=== PATIENT | female | born 2000 | race Caucasian/White ===

== ENCOUNTER → 2020-04-06 | Outpatient (CLI) | payer OTHER ==
[~2020-04-06] MED LIST: CLIN60LO2 TP; ETHI1TAB7 PO; MULT-658 PO
== END | disposition home or self-care (01) ==
LOC: STAR 15:44
PROVIDERS: ATTEND Otolaryngology
DX: Z20.822 Contact with and (suspected) exposure to COVID-19 (principal); R22.1 Localized swelling, mass and lump, neck
CPT/HCPCS: 87635

== ENCOUNTER 2020-04-12 12:16 | Observation (INO) | payer OTHER ==
[~2020-04-12] VITALS: Ht 162.6 cm; Wt 69.2 kg
[2020-04-12] MEDS ORDERED: EPINEPHRINE 1 MG/ML, 1ML ONE (12:30)
[2020-04-12] MEDS ORDERED: LIDOCAINE/PF 1%, 30ML ONE (12:30)
[2020-04-12 12:43] LABS: HCG UR SG 1.022 (1.003-1.030)
[2020-04-12] MEDS ORDERED: CHLORHEXIDINE 15 ML UDC MM ONE (13:00)
[2020-04-12] MEDS ORDERED: LACTATED RINGERS 1,000 ML IV SCH (13:00)
[2020-04-12] MEDS ORDERED: PROPOFOL 50 ML ONE (13:54)
[2020-04-12] MEDS ORDERED: MIDAZOLAM 1 MG/ML, 2ML ONE (13:55)
[2020-04-12] MEDS ORDERED: FENTANYL PF 250 MCG/5ML ONE (13:55)
[2020-04-12] MEDS ORDERED: LIDOCAINE 1%-EPI 1:100K, 30ML INFIL ONE (14:15)
[2020-04-12] MEDS ORDERED: CEFAZOLIN 1,000 MG ONE (14:15)
[2020-04-12] MEDS ORDERED: SUCCINYLCHOLINE 20 MG/ML, 10ML ONE (15:48)
[2020-04-12] MEDS ORDERED: ROCURONIUM 10MG/ML,5ML ONE (15:48)
[2020-04-12] MEDS ORDERED: DEXAMETHASONE 4 MG/ML, 5ML ONE (15:49)
[2020-04-12] MEDS ORDERED: DIPHENHYDRAMINE 50 MG/ML, 1ML ONE (15:49)
[2020-04-12] MEDS ORDERED: ONDANSETRON 2MG/ML, 2ML ONE (15:49)
[2020-04-12] MEDS ORDERED: FENTANYL PF 100 MCG/2ML ONE ×2 (15:49→16:51)
[2020-04-12] MEDS ORDERED: ONDANSETRON 2MG/ML, 2ML IVPush PRN (16:30)
[2020-04-12] MEDS ORDERED: HYDROmorphone 1 MG/ML, 1ML INJ IVPush PRN (16:30)
[2020-04-12] MEDS ORDERED: EPHEDRINE 50 MG/ML, 1ML IVPush PRN (16:30)
[2020-04-12] MEDS ORDERED: EPHEDRINE 50 MG/ML, 1ML IM PRN (16:30)
[2020-04-12] MEDS ORDERED: MEPERIDINE/PF 25MG/0.5ML IVPush PRN (16:30)
[2020-04-12] MEDS ORDERED: OXYcodone 5 MG/5 ML ORAL.SOL UDC PO PRN (16:30)
[2020-04-12] MEDS ORDERED: DIPHENHYDRAMINE 50 MG/ML, 1ML IVPush PRN (16:30)
[2020-04-12] MEDS ORDERED: DIAZEPAM 5 MG/ML, 2ML IVPush PRN (16:30)
[2020-04-12] MEDS ORDERED: LABETALOL 5MG/ML, 20ML IV PRN (16:30)
[2020-04-12] MEDS ORDERED: PROMETHAZINE 25 MG/ML, 1ML IVPush PRN (16:30)
[2020-04-12] MEDS ORDERED: OXYcodone 5 MG/5 ML ORAL.SOL UDC ONE (16:52)
[2020-04-12] MEDS: FENTANYL PF 100 MCG/2ML IV PRN ×2 (16:53→17:08)
[2020-04-12] MEDS ORDERED: ONDANSETRON 2MG/ML, 2ML IV PRN (18:30)
[2020-04-12] MEDS ORDERED: ACETAMINOPHEN 325 MG TABLET PO PRN (18:30)
[2020-04-12] MEDS ORDERED: OXYcodone/APAP 5/325MG TABLET PO PRN (18:30)
[2020-04-12] MEDS: KETOROLAC 30 MG/1 ML IV PRN (20:08)
[2020-04-12] MEDS: LACTATED RINGERS 1,000 ML IV SCH (20:09)
[2020-04-12 23:14] VITALS: BP 96/54
[2020-04-13] MEDS: KETOROLAC 30 MG/1 ML IV PRN ×2 (03:23→12:57)
[2020-04-13 03:29] VITALS: BP 121/75
[2020-04-13 07:45] VITALS: BP 121/79
[2020-04-13] MEDS: LACTATED RINGERS 1,000 ML IV SCH (08:20)
[2020-04-13 12:30] VITALS: BP 108/70
== END 2020-04-13 16:18 | disposition home or self-care (01) ==
LOC: OUT 12:16 → EDSTATUS 15:30 → 4NE 18:06 → OUT 18:18 → DCLOUNGE 04-13 15:39
PROVIDERS: ADMIT Otolaryngology; ATTEND Otolaryngology
DX: E07.9 Disorder of thyroid, unspecified (principal)
CPT/HCPCS: 60220; 81025; 88307; 88331; 96361; 96374; 96376; C1729; G0378; J0171; J0330; J0690; J1100; J1200; J1885; J2250; J2405; J2704; J3010; J3490; J7120